=== PATIENT | female | born 1955 | race Caucasian/White ===

== ENCOUNTER 2016-05-31 09:20 | Emergency (ER) | payer OTHER ==
[~2016-05-31 09:20] MED LIST: CIPRO 500MG TA500 MG PO; CITRACAL + D M1 EACH PO; DOXYCYCLINE MO100 MG PO; HYDROCODONE/ACE1 TA1 PO; LEVOTHYROXIN0.125 MG PO; LISINOPRIL10 MG PO; MAGNESIUM400 M1 PO; METRONIDAZOLE500 MG PO; OMEPRAZOLE D/R20 MG PO; SLOW-MAG71.5 MG; VENTOLIN HFA18 GM INH; VITAMIN B-121000 MC3 PO; VITAMIN D31000 UNI1 PO; ZOFRAN ODT4 MG PO
--- NOTE | 2016-05-31 09:38 | ED GI/GU/ABDOMINAL COMPLAINT ---
History of Present Illness General Chief Complaint: Abdominal Pain/Flank Pain Stated Complaint: ABDOMINAL PAIN STATES POSS DIVERTICULITIS Source: patient, old records Exam Limitations: no limitations Allergies Coded Allergies: Sulfa (Sulfonamide Antibiotics) (HIVES 04/26/15) amoxicillin (From AUGMENTIN) (HIVES, C-DIFF, DIVERTICULITIS 06/29/15) clavulanic acid (From AUGMENTIN) (HIVES, C-DIFF, DIVERTICULITIS 06/29/15) erythromycin base (HIVES 04/26/15) Reconcile Medications Cholecalciferol (Vitamin D3) (Vitamin D3) 1,000 UNIT CAPSULE 1 CAP PO DAILY SUPPLEMENT (Reported) Ciprofloxacin HCl (Cipro) 500 MG TABLET 1 TAB PO BID diverticulitis Cyanocobalamin (Vitamin B-12) (Unknown Strength) TABLET (Unknown Dose) PO DAILY SUPPLEMENT (Reported) Levothyroxine Sodium 0.125 MG TAB 0.125 MG PO DAILY AC THYROID (Reported) Lisinopril 10 MG TAB 1 TAB PO DAILY HEART (Reported) Magnesium Chloride (Slow-Mag) (Unknown Strength) TABLET.DR (Unknown Dose) LOW MAG (Reported) Magnesium Oxide (Magnesium) 400 MG CAPSULE 1 CAP PO BID SUPPLEMENT (Reported) Metronidazole 500 MG TABLET 1 TAB PO TID diverticulitis Oxycodone HCl/Acetaminophen (Percocet 5-325 MG Tablet) 5 MG-325 MG TABLET 1 TAB PO Q6H PRN PAIN Triage Note: PT PRESENTS TO ER C/O OF ABDOMINAL PAIN TO LOWER ABDOMEN THAT RADITES TO LOWER BACK. PT STATES PAIN STARTED LAST NIGHT AND FEELS LIKE HER DIVERTICULITIS. PT STATES SHE HAD A BARIUM SWALLOW TEST EARLIER TODAY. PT ALSO C/O N/V Triage Nurses Notes Reviewed? yes ? n Is pt currently ? No HPI: Patient is a 61-year-old female presents complaining of diffuse lower abdominal pain. Pain is an aching/sharp pain currently 8 out of 10, worsens with cough and palpation. Pain radiates to her low back. Pain feels similar to previous episodes of diverticulitis. Pain onset yesterday evening. 2 episodes of loose stool since onset of pain. The first bowel movement had bright red blood. Positive chills, fatigue, nausea. Patient reports that pain also feels worse when she feels the urge to urinate. Patient had a barium swallow study this morning prior to arrival to the emergency department. Patient was on antibiotics approximately one month ago for sinusitis. 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 No suspicious food intake. Patient with history of hypomagnesemia. Patient requesting that her magnesium be checked as previously when she has had loose stools and malaise her magnesium has been low. (ASHKAN AUGUST) Vital Signs & Intake/Output Vital Signs & Intake/Output Vital Signs Date Time Temp Pulse Resp B/P Pulse O2 O2 Flow FiO2 Ox Delivery Rate 05/31 1125 97.1 87 18 113/71 96 Room Air 05/31 1104 98 Room Air 05/31 0925 97.4 101 20 147/86 96 Room Air Past History Travel History Traveled to [place] past 21 day No Medical History Any Pertinent Medical History? see below for history Neurological: TREMORS EENT: allergies, sinusitis Cardiovascular: HTN, HIGH CHOL Respiratory: bronchitis Gastrointestinal: diverticulitis, c. 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 FATHER (HTN from thyroid storm). Hx Contributory? No (ASHKAN AUGUST) Review of Systems Review of Systems Constitutional: Reports: chills, malaise. Denies: fever. EENTM: Reports: no symptoms. Respiratory: Denies: cough, short of breath. Cardiovascular: Denies: chest pain. GI: Reports: see HPI, abdominal pain, nausea, bloody stool. Denies: vomiting. Genitourinary: Reports: no symptoms. Musculoskeletal: Reports: back pain. Skin: Reports: no symptoms. Neurological/Psychological: Reports: no symptoms. Hematologic/Endocrine: Reports: bleeding. Immunologic/Allergic: Reports: no symptoms. (ASHKAN AUGUST) Physical Exam Physical Exam General Appearance: alert, awake Head: atraumatic, normal appearance Eyes: Bilateral: normal appearance, PERRL, EOMI. Ears, Nose, Throat, Mouth: hearing grossly normal, moist mucous membrane Neck: normal inspection, supple, full range of motion Respiratory: normal breath sounds, chest non-tender, no respiratory distress, lungs clear Cardiovascular: regular rate/rhythm Gastrointestinal: soft, DIFFUSE LOWER ABDOMINAL TENDERNESS WITH MILD GUARDING. MILD LEFT UPPER QUADRANT TENDERNESS Back: normal inspection, normal range of motion Extremities: normal range of motion Neurologic/Psych: no motor/sensory deficits, awake, alert, oriented x 3, normal gait, normal mood/affect Skin: intact, normal color, warm/dry Core Measures ACS in differential dx? No Severe Sepsis Present: No Septic Shock Present: No (ASHKAN AUGUST) Progress Differential Diagnosis: diverticulitis, colitis, perforated viscus, sepsis, bowel obstruction, mesenteric ischemia Initial ED EKG: none (ASHKAN AUGUST) Plan of Care: Orders Procedure Date/time Status LACTIC ACID 05/31 1242 Active Add-on Test (ER Only) 05/31 1056 Active EKG 05/31 1030 Active CULTURE,URINE 05/31 1029 Active Add-on Test (ER Only) 05/31 1007 Active URINALYSIS 05/31 0942 Complete MAGNESIUM 05/31 0942 Complete LACTIC ACID 05/31 0942 Complete COMPREHENSIVE METABOLIC PANEL 05/31 0942 Complete CBC WITHOUT DIFFERENTIAL 05/31 0942 Complete Laboratory Tests 05/31/16 1029: Urine Color YEL, Urine Clarity CLEAR, Urine pH 6.0, Ur Specific [place] 1.025, Urine Protein 30 H, Urine Ketones NEG, Urine Nitrite NEG, Urine Bilirubin NEG, Urine Urobilinogen 0.2, Ur Leukocyte Esterase NEG, Ur Microscopic SEDIMENT EXAMINED, Urine RBC 10-15 H, Urine WBC 5-10 H, Ur Epithelial Cells MANY H, Urine Bacteria PACKD H, Urine Hemoglobin MOD H, Urine Glucose NEG 05/31/16 1026: Anion Gap 12, Estimated GFR > 60, BUN/Creatinine Ratio 17.8, Glucose 125 H, Lactic Acid 0.8, Calcium 9.5, Magnesium 1.5 L, Total Bilirubin 0.8, AST 19, ALT 31, Alkaline Phosphatase 73, Total Protein 7.5, Albumin 4.1, Globulin 3.4, Albumin/Globulin Ratio 1.2, CBC w Diff NO MAN DIFF REQ, RBC 4.37, MCV 91.9, MCH 31.0, RDW 12.9, MPV 8.5, Gran % 74.8, Lymphocytes % 16.4 L, Monocytes % 6.0, Eosinophils % 2.7, Basophils % 0.1, Absolute Granulocytes 11.0 H, Absolute Lymphocytes 2.4, Absolute Monocytes 0.9 H, Absolute Eosinophils 0.4, Absolute Basophils 0, PUBS MCHC 33.7 Microbiology 05/31 1029 URINE ROUT: Urine Culture - RECD Patient declined pain medication and antinausea medication on initial exam. 05/31/2016 11:13:28 AM: Patient had barium swallow study done prior to arrival in the emergency department. Patient had retail support associate film for her CT scan which shows barium throughout the colon. hvac service tech notified me that due to the dense nature of the barium used and a barium swallow that the CT scan would be nondiagnostic due to significant interference. Patient afebrile, nontoxic appearing. Results of labs discussed with patient. Deferral of CT scan and plan was discussed with patient. 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 (ASHKAN AUGUST) Departure Departure Time of Disposition: 1123 Disposition: HOME OR SELF CARE Condition: Stable Clinical Impression Primary Impression: Diverticulitis Qualifiers: Diverticulitis site: unspecified part of intestinal tract Secondary Impressions: Hypomagnesemia Referrals: EMILIO HEWITT,JOANNA BEJARANO,LUIS MUNGUIA (PCP/Family) Additional Instructions: Follow-up with your primary care provider or with your melter supervisor open hearth furnace this week for further evaluation. Call today for appointment. Clear liquid diet for the next 24 hours then slowly advance your diet as tolerated. Return to the emergency Department immediately if he developed fevers, vomiting, pain worsening, or worsening of symptoms. Departure Forms: Customer Survey General Discharge Information Prescriptions: Current Visit Scripts Ciprofloxacin HCl (Cipro) 1 TAB PO BID #20 TAB Metronidazole 1 TAB PO TID #30 TAB Oxycodone HCl/Acetaminophen (Percocet 5-325 MG Tablet) 1 TAB PO Q6H PRN PAIN #10 TAB (ASHKAN AUGUST) PA/LOGGING RAFTER LABORER Co-Sign Statement Statement: ED Attending supervision documentation- [] I saw and evaluated the patient. I have also reviewed all the pertinent lab results and diagnostic results. I agree with the findings and the plan of care as documented in the PA's/LOGGING RAFTER LABORER's documentation. [x] I have reviewed the ED Record and agree with the PA's/LOGGING RAFTER LABORER's documentation. [] Additions or exceptions (if any) to the PAs/LOGGING RAFTER LABORER's note and plan are summarized below: [] (TOMMIE HEWITT,LYSSA Bernstein)
[2016-05-31 10:36] LABS: ABSOLUTE BASOPHIL COUNT 0 /CUMM (0.0-0.2); ABSOLUTE EOSINOPHIL COUNT 0.4 /CUMM (0.0-0.7); ABSOLUTE LYMPH COUNT 2.4 /CUMM (1.2-3.4); ABSOLUTE MONOCYTE COUNT 0.9 /CUMM (0.10-0.60); BASOPHIL % 0.1 % (0.0-2.0); EOSINOPHIL % 2.7 % (0-5); GRANULOCYTE % 74.8 % (42.2-75.2); HEMATOCRIT 40.1 % (37-47); MEAN CORPUSCULAR HGB CONC 33.7 G/DL (33.0-37.0); MEAN CORPUSCULAR VOLUME 91.9 FL (81.0-99.0); MEAN PLATELET VOLUME 8.5 FL (7.4-10.4); PLATELET COUNT 270 /CUMM (130-400); RBC DISTRIBUTION WIDTH 12.9 % (11.5-14.5); RED BLOOD CELL CT 4.37 /CUMM (4.20-5.40); WHITE BLOOD CELL COUNT 14.7 /CUMM (4.8-10.8)
[2016-05-31 11:25] VITALS: BP 113/71
[2016-05-31] MEDS ORDERED: METRONIDAZOLE500 M1 PO (11:25)
[2016-05-31] MEDS ORDERED: PERCOCET 5-3251 EACH PO (11:25)
[2016-05-31] MEDS ORDERED: CIPRO500 M1 PO (11:25)
--- NOTE | 2016-05-31 11:39 | CT SCAN REPORT ---
EXAMINATION: CT LIMITED OR FOLLOWUP CLINICAL INFORMATION: Diffuse lower abdominal pain and tenderness with guarding. IMPRESSION: A large volume of residual barium contrast material was visualized within the stomach and small bowel on the bioinformatics assistant images therefore no CT imaging was obtained. The limited bioinformatics assistant images reveal no abnormal finding.
== END 2016-05-31 12:34 ==
LOC: ERH 09:20
PROVIDERS: Physician Assistant
DX: K57.92 Diverticulitis of intestine, part unspecified, without perforation or abscess without bleeding (principal); E83.42 Hypomagnesemia
CPT/HCPCS: 81001; 87086; 96374; 96375; 99291; J2405

== ENCOUNTER 2016-06-02 07:35 | Emergency (ER) | payer OTHER ==
[~2016-06-02] VITALS: Ht 162.6 cm; Wt 102.5 kg
[~2016-06-02 07:35] MED LIST changes: +CIPRO500 M1 PO; +METRONIDAZOLE500 M1 PO; +PERCOCET 5-3251 EACH PO
--- NOTE | 2016-06-02 07:43 | ED GENERAL ADULT ---
See Addendum History of Present Illness General Chief Complaint: Abdominal Pain/Flank Pain Stated Complaint: LOW ABD/ R FLANK PAIN Source: patient Exam Limitations: no limitations Vital Signs & Intake/Output Vital Signs & Intake/Output Vital Signs Date Time Temp Pulse Resp B/P Pulse O2 O2 Flow FiO2 Ox Delivery Rate 06/02 1220 97.0 78 20 114/60 96 Room Air 06/02 1046 97.0 78 18 127/74 96 Room Air 06/02 0940 98.9 88 20 144/73 96 Room Air 06/02 0823 99.0 100 20 172/91 96 Room Air 06/02 0740 98.0 98 16 187/82 97 Room Air Allergies Coded Allergies: Sulfa (Sulfonamide Antibiotics) (HIVES 04/26/15) amoxicillin (From AUGMENTIN) (HIVES, C-DIFF, DIVERTICULITIS 06/29/15) clavulanic acid (From AUGMENTIN) (HIVES, C-DIFF, DIVERTICULITIS 06/29/15) erythromycin base (HIVES 04/26/15) Reconcile Medications Cholecalciferol (Vitamin D3) (Vitamin D3) 1,000 UNIT CAPSULE 1 CAP PO DAILY SUPPLEMENT (Reported) Ciprofloxacin HCl (Cipro) 500 MG TABLET 1 TAB PO BID diverticulitis Cyanocobalamin (Vitamin B-12) (Unknown Strength) TABLET (Unknown Dose) PO DAILY SUPPLEMENT (Reported) Levothyroxine Sodium 0.125 MG TAB 0.125 MG PO DAILY AC THYROID (Reported) Lisinopril 10 MG TAB 1 TAB PO DAILY HEART (Reported) Magnesium Chloride (Slow-Mag) (Unknown Strength) TABLET.DR (Unknown Dose) LOW MAG (Reported) Magnesium Oxide (Magnesium) 400 MG CAPSULE 1 CAP PO BID SUPPLEMENT (Reported) Metronidazole 500 MG TABLET 1 TAB PO TID diverticulitis Oxycodone HCl/Acetaminophen (Percocet 5-325 MG Tablet) 5 MG-325 MG TABLET 1 TAB PO Q6H PRN PAIN Triage Note: 61 Y/O FEMALE C/O LOW ABDOMINAL AND LOW BACK PAIN SINCE MONDAY. STATES HX DIVERTICULITIS AND WAS EVAL'D IN ED MONDAY FOR SIMILIAR SYMPTOMS - PRESCRIBED ANTIBIOTICS X 2 AND HAS BEEN TAKING WITH NO RELIEF. WAS UNABLE TO HAVE CT SCAN DUE TO BARIUM SWALLOW TEST SAME DAY. REPORTS CONTINUED PAIN AND NOW HEMATURIA. REPORTS DECREASED APPETITE/PO INTAKE. DENIES N/V/D. AFEBRILE. Triage Nurses Notes Reviewed? yes Onset: Abrupt Duration: hour(s): Timing: recent history HPI: 06/02/16 8 AM 61-year-old female presents to the emergency department complaining of right- sided flank pain and lower abdominal pain. The patient states that she developed abdominal pain approximately 72 hours ago. She had been seen in the emergency department. No CT scan was done as the patient had recently had a barium. She has been having episodes of bright red blood per rectum. She's had this in the past. She also has a history of diverticulitis. She was empirically started on antibiotics for diverticulitis but now comes in with ongoing severe right-sided pain. She also admits to hematuria. The onset of symptoms were abrupt, the duration has been several days, the severity is significant; as her symptoms required her to come to the emergency department for care. His past medical history of diverticulitis. She has a past surgical history for hysterectomy and cholecystectomy. Past History Travel History Traveled to [place] past 21 day No Medical History Any Pertinent Medical History? see below for history Neurological: TREMORS EENT: allergies, sinusitis Cardiovascular: HTN, HIGH CHOL Respiratory: bronchitis Gastrointestinal: diverticulitis, c. 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 FATHER (HTN from thyroid storm). Hx Contributory? No Review of Systems Review of Systems Constitutional: Denies: no symptoms. EENTM: Denies: no symptoms. Respiratory: Denies: short of breath. Cardiovascular: Denies: chest pain. GI: Reports: abdominal pain. Genitourinary: Reports: hematuria. Musculoskeletal: Reports: no symptoms. Skin: Denies: rash. Neurological/Psychological: Reports: no symptoms. Hematologic/Endocrine: Reports: no symptoms. Immunologic/Allergic: Reports: no symptoms. Physical Exam Physical Exam General Appearance: alert, awake, anxious, moderate distress Head: atraumatic, normal appearance Eyes: Bilateral: normal appearance, PERRL, EOMI. Ears, Nose, Throat: normal pharynx, normal ENT inspection Neck: normal inspection, supple, full range of motion Respiratory: normal breath sounds, chest non-tender, no respiratory distress Cardiovascular: regular rate/rhythm Peripheral Pulses: 4+ radial (R), 4+ radial (L) Gastrointestinal: soft, tenderness Rectal: heme negative stool Back: normal inspection, decreased range of motion Extremities: normal inspection, normal range of motion Neurologic/Psych: no motor/sensory deficits, awake, alert, oriented x 3 Skin: intact, normal color, warm/dry Core Measures ACS in differential dx? No CVA/TIA Diagnosis: No Severe Sepsis Present: No Septic Shock Present: No Progress Differential Diagnoses I considered the following diagnoses in my evaluation of the patient: [ Appendicitis, diverticulitis, intra-abdominal abscess, pyelonephritis, renal colic, irritable bowel syndrome, colitis, C. difficile] Plan of Care: Orders Procedure Date/time Status Add-on Test (ER Only) 06/02 08 Active COMPREHENSIVE METABOLIC PANEL 06/02 0818 Complete CBC WITHOUT DIFFERENTIAL 06/02 0818 Complete CULTURE,URINE 06/02 0745 Active URINALYSIS 06/02 0741 Complete Laboratory Tests 06/02/16 0835: Anion Gap 10, Estimated GFR 56 L, BUN/Creatinine Ratio 15.0, Glucose 142 H, Calcium 9.1, Total Bilirubin 0.6, AST 19, ALT 36, Alkaline Phosphatase 65, Total Protein 6.8, Albumin 3.7, Globulin 3.1, Albumin/Globulin Ratio 1.2, CBC w Diff NO MAN DIFF REQ, RBC 4.06 L, MCV 93.5, MCH 31.1 H, RDW 13.3, MPV 8.4, Gran % 76.5 H, Lymphocytes % 12.9 L, Monocytes % 6.5, Eosinophils % 3.7, Basophils % 0.4, Absolute Granulocytes 9.1 H, Absolute Lymphocytes 1.5, Absolute Monocytes 0.8 H, Absolute Eosinophils 0.4, Absolute Basophils 0, PUBS MCHC 33.3 06/02/16 0745: Urine Color YEL, Urine Clarity CLDY H, Urine pH 5.5, Ur Specific [place] >= 1.030, Urine Protein 100 H, Urine Ketones TRACE H, Urine Nitrite NEG, Urine Bilirubin NEG@ICTO, Urine Urobilinogen 0.2, Ur Leukocyte Esterase TRACE H, Ur Microscopic SEDIMENT EXAMINED, Urine RBC 1-3, Urine WBC 1-3 H, Ur Epithelial Cells MANY H, Urine Bacteria MANY H, Urine Hemoglobin MOD H, Urine Glucose NEG Microbiology 06/02 0745 URINE ROUT: Urine Culture - RECD Initial ED EKG: none Departure Departure Disposition: HOME OR SELF CARE Condition: Stable Clinical Impression Primary Impression: Abdominal pain Referrals: DOM BEJARANO,LUIS MUNGUIA (PCP/Family) Departure Forms: Customer Survey General Discharge Information Comments 06/02/16 12 PM The patient remains comfortable in the emergency Department, her abdomen is soft and minimally tender. She has no peritoneal signs. CT scan is unable to be done as the patient has barium which is causing artifact on the image. Ultrasound was done of the pelvis which showed no acute findings or evidence of hydronephrosis. The patient is comfortable with the plan to continue the antibiotics for presumed diverticulitis and to keep her follow-up appointment with Dr. Alston. I discussed the case with Dr. Alston; he is in agreement with the plan and he will see the patient in follow-up as scheduled. An antispasmodic has been called in by Dr. Alston and she will take that as directed. She was told to return to the emergency department if fever or worse The patient is afebrile. Her white blood cell count is coming down. Her abdomen is only minimally tender on reevaluation. She is only been on antibiotics for approximately 48 hours. She was instructed to return immediately if she develops a fever or if the pain is worse. Critical Care Note Critical Care Note Critical Care Time: non-applicable
[2016-06-02 08:50] LABS: ABSOLUTE BASOPHIL COUNT 0 /CUMM (0.0-0.2); ABSOLUTE EOSINOPHIL COUNT 0.4 /CUMM (0.0-0.7); ABSOLUTE GRANULOCYTE CT 9.1 /CUMM (1.4-6.5); ABSOLUTE LYMPH COUNT 1.5 /CUMM (1.2-3.4); ABSOLUTE MONOCYTE COUNT 0.8 /CUMM (0.10-0.60); BASOPHIL % 0.4 % (0.0-2.0); EOSINOPHIL % 3.7 % (0-5); GRANULOCYTE % 76.5 % (42.2-75.2); MEAN CORPUSCULAR HGB 31.1 PG (27.0-31.0); MEAN CORPUSCULAR HGB CONC 33.3 G/DL (33.0-37.0); MEAN CORPUSCULAR VOLUME 93.5 FL (81.0-99.0); MEAN PLATELET VOLUME 8.4 FL (7.4-10.4); PLATELET COUNT 250 /CUMM (130-400); RBC DISTRIBUTION WIDTH 13.3 % (11.5-14.5); RED BLOOD CELL CT 4.06 /CUMM (4.20-5.40); WHITE BLOOD CELL COUNT 11.9 /CUMM (4.8-10.8)
--- NOTE | 2016-06-02 10:03 | CT SCAN REPORT ---
EXAMINATION: CT LIMITED OR FOLLOWUP CLINICAL INFORMATION: 61-year-old female with severe right flank pain. Evaluate for ureterolithiasis. COMPARISON: CT abdomen and pelvis from 09/09/2013. FINDINGS/IMPRESSION: Frontal and lateral elevator constructor hydraulic images of the abdomen were acquired. Large volume of residual barium contrast is present throughout the colon. CT imaging should be deferred - if clinically reasonable - until the contrast has passed through the colon. Diagnostic CT imaging was not performed at this time. Instead, patient will be scheduled for ultrasound evaluation.
--- NOTE | 2016-06-02 11:10 | ULTRASOUND REPORT ---
EXAMINATION: US RETROPERITONEAL COMPLETE (RENAL) CLINICAL INFORMATION: Left flank pain. Evaluate for hydronephrosis. COMPARISON: CT of abdomen pelvis from 09/09/2013. TECHNIQUE: Real-time imaging of the kidneys and bladder. FINDINGS: RIGHT KIDNEY: 10 x 4.8 x 4.4 cm (SAG x AP x TRV). The kidney has normal size, cortical thickness and echotexture. No evidence of renal mass, nephrolithiasis or hydronephrosis. LEFT KIDNEY: 10.3 x 5.4 x 4.9 cm (SAG x AP x TRV). The kidney has normal cortical thickness and echotexture. No solid renal mass, nephrolithiasis or hydronephrosis. A simple peripelvic cyst of the interpolar region is 3.4 x 3.4 x 2.9 cm; this cyst measured up to 3.3 cm maximum dimension on 09/09/2013. BLADDER: Urinary bladder is nearly completely empty and, therefore, suboptimally evaluated. No bladder calculi. A left ureteral jet was observed during the time of imaging. OTHER: The visualized liver is diffusely hyperechoic, suggestive of steatosis. No free fluid in Morison's pouch. IMPRESSION: 1. No evidence of nephrolithiasis or urinary tract obstruction. 2. Simple, peripelvic cyst of the interpolar left kidney remains similar in size compared to 09/09/2013.
[2016-06-02 12:20] VITALS: BP 114/60
== END 2016-06-02 12:21 ==
LOC: ERH 07:35
PROVIDERS: Emergency Medicine
DX: R10.31 Right lower quadrant pain (principal)
CPT/HCPCS: 76775; 81001; 87086; 96374; 96375; 96376; J2405

== ENCOUNTER 2017-04-17 11:48 | Emergency (ER) | payer OTHER ==
[~2017-04-17] VITALS: Ht 162.6 cm; Wt 100.7 kg
[~2017-04-17 11:48] MED LIST changes: +FLAGYL500 MG PO; -LEVOTHYROXIN0.125 MG PO; +LEVOTHYROXINE125 MCG PO; +LISINOPRIL10 M1 PO; -LISINOPRIL10 MG PO; +RANITIDINE HCL300 M1 PO; -SLOW-MAG71.5 MG; +SLOW-MAG71.5 MG PO
--- NOTE | 2017-04-17 13:36 | ED GI/GU/ABDOMINAL COMPLAINT ---
History of Present Illness General Chief Complaint: Abdominal Pain/Flank Pain Stated Complaint: LOWER ABD LOWER BACK PAIN X12 HOURS Vital Signs & Intake/Output Vital Signs & Intake/Output Vital Signs Date Time Temp Pulse Resp B/P B/P Pulse O2 O2 Flow FiO2 Mean Ox Delivery Rate 04/17 1209 98.2 88 20 129/82 96 Room Air Allergies Coded Allergies: Sulfa (Sulfonamide Antibiotics) (HIVES 04/26/15) amoxicillin (From AUGMENTIN) (HIVES, C-DIFF, DIVERTICULITIS 06/29/15) clavulanic acid (From AUGMENTIN) (HIVES, C-DIFF, DIVERTICULITIS 06/29/15) erythromycin base (HIVES 04/26/15) Reconcile Medications Cholecalciferol (Vitamin D3) (Vitamin D3) 1,000 UNIT CAPSULE 1 CAP PO DAILY SUPPLEMENT (Reported) Ciprofloxacin HCl (Cipro) 500 MG TABLET 1 TAB PO BID Diverticulitis Cyanocobalamin (Vitamin B-12) 1,000 MCG TABLET 1 TAB PO DAILY SUPPLEMENT ( Reported) Levothyroxine Sodium 125 MCG TABLET 1 TAB PO DAILY AC THYROID (Reported) Lisinopril 10 MG TABLET 1 TAB PO DAILY HEART (Reported) Magnesium Chloride (Slow-Mag) 71.5 MG TABLET.DR 1 TAB PO 4 TIMES/DAY LOW MAG (Reported) Magnesium Oxide (Magnesium) 400 MG CAPSULE 1 CAP PO BID SUPPLEMENT (Reported) Metronidazole (Flagyl) 500 MG TABLET 1 TAB PO TID Diverticulitis Ranitidine HCl 300 MG TABLET 1 TAB PO BID ACID REFLUX (Reported) Triage Note: PT C/O LOW BACK AND LOW ABDOMINAL PAIN SINCE YESTERDAY. PT DENIES N/V/D. PT STATES HX OF DIVERTICULITIS AND SHE THINKS THIS IS A FLARE UP Past History Travel History Traveled to [place] past 21 day No Medical History Neurological: TREMORS EENT: allergies, sinusitis Cardiovascular: HTN, HIGH CHOL Respiratory: bronchitis Gastrointestinal: diverticulitis, c. 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 FATHER (HTN from thyroid storm). Departure Departure Condition: Stable Referrals: Patrice BEJARANO,Alycia Medina (PCP/Family) Departure Forms: Customer Survey General Discharge Information
--- NOTE | 2017-04-17 13:39 | ED GI/GU/ABDOMINAL COMPLAINT ---
History of Present Illness General Chief Complaint: Abdominal Pain/Flank Pain Stated Complaint: LOWER ABD LOWER BACK PAIN X12 HOURS Source: patient, old records Exam Limitations: no limitations Vital Signs & Intake/Output Vital Signs & Intake/Output Vital Signs Date Time Temp Pulse Resp B/P B/P Pulse O2 O2 Flow FiO2 Mean Ox Delivery Rate 04/17 1715 98.0 71 16 134/77 97 Room Air 04/17 1434 98.0 74 20 139/76 100 Room Air 04/17 1428 Room Air 04/17 1209 98.2 88 20 129/82 96 Room Air Allergies Coded Allergies: Sulfa (Sulfonamide Antibiotics) (HIVES 04/26/15) amoxicillin (From AUGMENTIN) (HIVES, C-DIFF, DIVERTICULITIS 06/29/15) clavulanic acid (From AUGMENTIN) (HIVES, C-DIFF, DIVERTICULITIS 06/29/15) erythromycin base (HIVES 04/26/15) Reconcile Medications Cholecalciferol (Vitamin D3) (Vitamin D3) 1,000 UNIT CAPSULE 1 CAP PO DAILY SUPPLEMENT (Reported) Ciprofloxacin HCl (Cipro) 500 MG TABLET 1 TAB PO BID diverticulitis Cyanocobalamin (Vitamin B-12) 1,000 MCG TABLET 1 TAB PO DAILY SUPPLEMENT ( Reported) Levothyroxine Sodium 125 MCG TABLET 1 TAB PO DAILY AC THYROID (Reported) Lisinopril 10 MG TABLET 1 TAB PO DAILY HEART (Reported) Magnesium Chloride (Slow-Mag) 71.5 MG TABLET.DR 1 TAB PO 4 TIMES/DAY LOW MAG (Reported) Magnesium Oxide (Magnesium) 400 MG CAPSULE 1 CAP PO BID SUPPLEMENT (Reported) Metronidazole (Flagyl) 500 MG TABLET 1 TAB PO TID DIVERTICULITIS Phentermine/Topiramate (Qsymia 3.75 MG-23 MG Capsule) 3.75 MG-23 MG CPMP.24HR 1 CAP PO QAM DIAET PILL (Reported) Ranitidine HCl 300 MG TABLET 1 TAB PO BID ACID REFLUX (Reported) Triage Note: PT C/O LOW BACK AND LOW ABDOMINAL PAIN SINCE YESTERDAY. PT DENIES N/V/D. PT STATES HX OF DIVERTICULITIS AND SHE THINKS THIS IS A FLARE UP Triage Nurses Notes Reviewed? yes ? N Is pt currently ? No Onset: Gradual Duration: day(s): (1) Timing: remote history Quality/Severity: cramping, sharpness Severity Numbers: 10 Location: left lower quadrant, right lower quadrant, right upper quadrant Radiation: RUQ Activities at Onset: AFTER EATING Prior Abdominal Problems: similar symptoms Past Sexual History: Unobtainable at this time No Modifying Factors: none Associated Symptoms: fever/chills HPI: Patient is a 61-year-old female with history of extensive diverticulosis, diverticulitis, hypothyroidism, hypertension presenting to the emergency department with chief complaint of left lower and right lower abdominal pain this been going on since yesterday evening. Symptoms started after eating a soft food diet. Denies any nausea or vomiting. Positive tactile fevers, no chills. Denies taking anything at home to help with symptoms. No sick contacts or recent travel. She does report one episode of diarrhea last week without any blood in it. Patient had 2 small firm bowel movements this morning. Recent antibiotics. Last flareup of diverticulitis was about 6 months ago. Patient also reporting that the pain intermittently stabbing. Pain is a constant cramping feeling. Pain currently 10 out of 10. (Idania Elliott) Past History Travel History Traveled to [place] past 21 day No Medical History Any Pertinent Medical History? see below for history Neurological: TREMORS EENT: allergies, sinusitis Cardiovascular: HTN, HIGH CHOL Respiratory: bronchitis Gastrointestinal: diverticulitis, c. difficile colitis Hepatic: NONE Renal: NONE Musculoskeletal: disk herniation Psychiatric: NONE Endocrine: HYPOPARA THYROID DM-DIET CONTROLED Blood Disorders: NONE Cancer(s): NONE TABLE TENDER/Reproductive: NONE, fibroid History of MRSA: No History of VRE: No History of CDIFF: No Tetanus Vaccine: 03/22/15 Surgical History Surgical History: hysterectomy, spinal fusion, Rotator cuff repair right shoulder Psychosocial History Who do you live with Spouse Services at Home NONE What is your primary language Welsh Tobacco Use: Quit >30 days ago ETOH Use: occasional use Illicit Drug Use: denies illicit drug use Family History Family History, If Any: MOTHER (Lung Cancer Hypertension Grave's disease). FATHER (HTN from thyroid storm). Hx Contributory? No (Idania Elliott) Review of Systems Review of Systems Constitutional: Reports: fever. Comments Review of systems: See HPI, All other systems negative. Constitutional, no chills OR weight loss HEENT: No visual changes no sore throat no congestion Cardiovascular: No chest pain ,palpitation , orthopnea or ankle swelling Skin, no jaundice no rashes Respiratory: No dyspnea cough sputum or hemoptysis GI: No nausea no vomiting : No dysuria No hematuria Muscle skeletal: no neck pain, Neurologic: No numbness no confusion and no headaches Psych: No stress anxiety or depression,. Heme/endocrine: No bruising no bleeding no polyuria or polydipsia Immunology: No splenectomy or history of AIDS (Idania Elliott) Physical Exam Physical Exam General Appearance: well developed/nourished, no apparent distress, alert, awake , comfortable Gastrointestinal: normal bowel sounds, soft, tenderness Comments: Well-developed well-nourished person in no acute distress HEENT: Atraumatic, normocephalic Neck: Supple, no lymphadenopathy, normal range of motion without pain or tenderness Back: Nontender, no CVA tenderness. Cardiovascular: Regular rate and rhythms no murmurs rubs or gallops, normal JVP Respiratory: Chest nontender. No respiratory distress.breath sounds clear to auscultation bilaterally Abdomen: Soft, significant tenderness to palpation in the left lower quadrant with guarding, mild rebound tenderness noted, nondistended, no appreciable organomegaly. Hypoactive bowel sounds. No ascites Extremity: No edemA Neuro: Alert oriented x3 Skin: No appreciable rash on exposed skin, skin is warm and dry. Psych: Mood and affect is normal, memory and judgment is normal. Core Measures ACS in differential dx? No Sepsis Present: No Sepsis Focused Exam Completed? No (Idania Elliott) Progress Differential Diagnosis: AAA, appendicitis, bowel obstruction, diverticulitis, gastritis, ischemic bowel, inflamm bowel dis, kidney stone, UTI/pyelo Plan of Care: Orders Procedure Date/time Status Add-on Test (ER Only) 04/17 1440 Active MAGNESIUM 04/17 1415 Complete URINALYSIS 04/17 1355 Complete LACTIC ACID 04/17 1355 Complete COMPREHENSIVE METABOLIC PANEL 04/17 1355 Complete CBC WITHOUT DIFFERENTIAL 04/17 1355 Complete Laboratory Tests 04/17/17 1655: Lactic Acid Cancelled 04/17/17 1415: Anion Gap 9, Estimated GFR > 60, BUN/Creatinine Ratio 17.8, Glucose 96, Lactic Acid 0.8, Calcium 9.9, Magnesium 1.5 L, Total Bilirubin 0.7, AST 19, ALT 21, Alkaline Phosphatase 61, Total Protein 7.7, Albumin 4.3, Globulin 3.4, Albumin/ Globulin Ratio 1.3, CBC w Diff NO MAN DIFF REQ, RBC 4.54, MCV 91.5, MCH 31.2 H, MCHC 34.1, RDW 13.1, MPV 8.9, Gran % 70.2, Lymphocytes % 18.2 L, Monocytes % 6.7, Eosinophils % 4.2, Basophils % 0.7, Absolute Granulocytes 9.6 H, Absolute Lymphocytes 2.5, Absolute Monocytes 0.9 H, Absolute Eosinophils 0.6, Absolute Basophils 0.1 04/17/17 1410: Urinalysis LIGHT H, Urine Color STRAW, Urine Clarity CLEAR, Urine pH 6.5, Ur Specific [place] <= 1.005, Urine Protein NEG, Urine Ketones NEG, Urine Nitrite NEG, Urine Bilirubin NEG, Urine Urobilinogen 0.2, Ur Leukocyte Esterase NEG, Ur Microscopic SEDIMENT EXAMINED, Urine RBC RARE, Urine WBC RARE, Ur Epithelial Cells FEW, Urine Bacteria FEW H, Urine Mucus RARE, Urine Hemoglobin TRACE- INTACT, Urine Glucose NEG Patient is afebrile arrival, well-appearing with significant tenderness about patient in the left lower quadrant with guarding. Patient feels that this is a flareup of diverticulitis. We will obtain blood work, IV initiated, slow IV hydration along with IV Tylenol given for pain. Patient will go for CT to rule out diverticulitis. Diagnostic Imaging: Viewed by Me: CT Scan. Discussed w/RAD: CT Scan. Radiology Impression: PATIENT: JOSÉ GONZALEZ PRESENT AGE: 61 PATIENT ACCOUNT NO: [id number] : 55 LOCATION: [facility] ORDERING PHYSICIAN: Idania BEJARANO SERVICE DATE: 04/17/17-7993 EXAM TYPE: CAT - CT ABD & PELVIS W IV CONTRAST EXAMINATION: CT ABDOMEN AND PELVIS WITH CONTRAST CLINICAL INFORMATION: Left lower quadrant pain. COMPARISON: 09/11/2016 TECHNIQUE : Multidetector volumetric imaging was performed of the abdomen and pelvis following IV administration of 95 mL of Optiray 320 intravenous contrast. Sagittal and coronal reformatted images were obtained on the technologist's workstation. DLP: 1049 mGy-cm FINDINGS: LUNG BASES: The visualized lung bases are unremarkable. LIVER, GALLBLADDER, AND BILIARY TREE: The liver is normal in size, shape, and attenuation. No focal hepatic lesion or biliary ductal dilatation is present. The gallbladder has been removed. PANCREAS: Unremarkable. SPLEEN: Unremarkable. ADRENAL GLANDS: Unremarkable. KIDNEYS AND URETERS: Prominent left peripelvic cyst and a few subcentimeter cortical hypodensities, also likely representing cysts. BLADDER: Unremarkable. GASTROINTESTINAL TRACT: There is colonic diverticulosis, most prominent along the sigmoid. There are inflammatory changes surrounding a prominent diverticulum containing a fecalith along the anterior wall near the junction with the descending colon compatible with acute diverticulitis. No obstruction or abscess. No evidence of appendicitis. ABDOMINAL WALL: No significant hernia is appreciated. LYMPH NODES: Normal. VASCULAR: Mild atherosclerotic calcifications of the abdominal aorta. PELVIC VISCERA: The uterus is absent. OSSEOUS STRUCTURES: No suspicious lesions. IMPRESSION: Acute sigmoid diverticulitis. No abscess or obstruction. DICTATED BY : Terrance Dowling MD DATE/TIME DICTATED:04/17/171556 DIRECTOR OF PEOPLE: LEIDY DATE/TIME TRANSCRIBED:04/17/171556 CONFIDENTIAL, DO NOT COPY WITHOUT APPROPRIATE AUTHORIZATION. <Electronically signed in Other Vendor System> SIGNED BY: Terrance Dowling MD 04/17/17 1653 Initial ED EKG: none (Idania Elliott) Departure Departure Time of Disposition: 1700 Disposition: HOME OR SELF CARE Condition: Stable Clinical Impression Primary Impression: Diverticulitis Referrals: Gamaliel HEWITT,John BEJARANO,Alycia Medina (PCP/Family) Additional Instructions: Follow-up with Dr. Dos Santos on Monday as scheduled. Take Cipro and Flagyl as prescribed to help with diverticulitis. Clear liquid diet for the next 24 hours. Return for worsening symptoms fevers worsening pain or concerns. Departure Forms: Customer Survey General Discharge Information Prescriptions: Current Visit Scripts Ciprofloxacin HCl (Cipro) 1 TAB PO BID #20 TAB Metronidazole (Flagyl) 1 TAB PO TID #30 TAB (Idania Elliott) PA/COMMUNITY DIRECTOR Co-Sign Statement Statement: ED Attending supervision documentation- x I saw and evaluated the patient. I have also reviewed all the pertinent lab results and diagnostic results. I agree with the findings and the plan of care as documented in the PA's/COMMUNITY DIRECTOR's documentation. x I have reviewed the ED Record and agree with the PA's/COMMUNITY DIRECTOR's documentation. [] Additions or exceptions (if any) to the PAs/COMMUNITY DIRECTOR's note and plan are summarized below: [] (Vikram HEWITT,Aj)
[2017-04-17 14:28] LABS: ABSOLUTE BASOPHIL COUNT 0.1 /CUMM (0.0-0.2); ABSOLUTE EOSINOPHIL COUNT 0.6 /CUMM (0.0-0.7); ABSOLUTE GRANULOCYTE CT 9.6 /CUMM (1.4-6.5); ABSOLUTE LYMPH COUNT 2.5 /CUMM (1.2-3.4); ABSOLUTE MONOCYTE COUNT 0.9 /CUMM (0.10-0.60); BASOPHIL % 0.7 % (0.0-2.0); EOSINOPHIL % 4.2 % (0-5); GRANULOCYTE % 70.2 % (42.2-75.2); HEMATOCRIT 41.6 % (37-47); MEAN CORPUSCULAR HGB 31.2 PG (27.0-31.0); MEAN CORPUSCULAR HGB CONC 34.1 G/DL (33.0-37.0); MEAN CORPUSCULAR VOLUME 91.5 FL (81.0-99.0); MEAN PLATELET VOLUME 8.9 FL (7.4-10.4); PLATELET COUNT 290 /CUMM (130-400); RBC DISTRIBUTION WIDTH 13.1 % (11.5-14.5); RED BLOOD CELL CT 4.54 /CUMM (4.20-5.40); WHITE BLOOD CELL COUNT 13.6 /CUMM (4.8-10.8)
[2017-04-17] MEDS ORDERED: QSYMIA 3.75 MG1 EACH PO (14:29)
--- NOTE | 2017-04-17 16:53 | CT SCAN REPORT ---
EXAMINATION: CT ABDOMEN AND PELVIS WITH CONTRAST CLINICAL INFORMATION: Left lower quadrant pain. COMPARISON: 09/11/2016 TECHNIQUE: Multidetector volumetric imaging was performed of the abdomen and pelvis following IV administration of 95 mL of Optiray 320 intravenous contrast. Sagittal and coronal reformatted images were obtained on the technologist's workstation. DLP: 1049 mGy-cm FINDINGS: LUNG BASES: The visualized lung bases are unremarkable. LIVER, GALLBLADDER, AND BILIARY TREE: The liver is normal in size, shape, and attenuation. No focal hepatic lesion or biliary ductal dilatation is present. The gallbladder has been removed. PANCREAS: Unremarkable. SPLEEN: Unremarkable. ADRENAL GLANDS: Unremarkable. KIDNEYS AND URETERS: Prominent left peripelvic cyst and a few subcentimeter cortical hypodensities, also likely representing cysts. BLADDER: Unremarkable. GASTROINTESTINAL TRACT: There is colonic diverticulosis, most prominent along the sigmoid. There are inflammatory changes surrounding a prominent diverticulum containing a fecalith along the anterior wall near the junction with the descending colon compatible with acute diverticulitis. No obstruction or abscess. No evidence of appendicitis. ABDOMINAL WALL: No significant hernia is appreciated. LYMPH NODES: Normal. VASCULAR: Mild atherosclerotic calcifications of the abdominal aorta. PELVIC VISCERA: The uterus is absent. OSSEOUS STRUCTURES: No suspicious lesions. IMPRESSION: Acute sigmoid diverticulitis. No abscess or obstruction.
[2017-04-17] MEDS ORDERED: FLAGYL500 MG PO (17:03)
[2017-04-17] MEDS ORDERED: CIPRO500 M1 PO (17:03)
[2017-04-17 17:15] VITALS: BP 134/77
== END 2017-04-17 17:28 ==
LOC: ERH 11:48
PROVIDERS: Physician Assistant
DX: K57.92 Diverticulitis of intestine, part unspecified, without perforation or abscess without bleeding (principal)
CPT/HCPCS: 74177; 81001; 96374; J0131